=== PATIENT | female | born 1980 | race Caucasian/White ===

== ENCOUNTER 2017-04-07 04:29 | Inpatient (IN) | payer OTHER ==
[2017-04-07] VITALS (17 sets, daily range): BP systolic 119–125; BP diastolic 59–83; PULSE 47–86; RESP 16–18; TEMP 97.8–98.7
[~2017-04-07] VITALS: Ht 167.6 cm; Wt 68.5 kg
[~2017-04-07 04:29] MED LIST: CYCL-36 PO; DICL75 PO
[2017-04-07] MEDS ORDERED: PREN29TA PO (04:42)
[2017-04-07] MEDS ORDERED: ACYC400T PO (04:42)
[2017-04-07] MEDS ORDERED: OXYTOCIN 30 UNITS-500ML PREMIX 500 ML ONE (04:44)
[2017-04-07] MEDS ORDERED: LIDOCAINE HCL 1% 50 ML VIAL ONE (04:45)
--- NOTE | 2017-04-07 04:46 | HHI.HP ---
HPI Chief Complaint Active labor Date Seen: Apr 07, 2017 Travel History International Travel<30 Days: No Contact w/Intl Traveler<30Days: No Known Affected Area: No History of Present Illness HPI 36-year-old white female at 36 -37 wks with active labor presents precipitous labor. Heart tones are within normal limits she is nay every other minutes she goes to the [facility] for care and sees Dr. 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 08/22/11 Diclofenac Sod (Diclofenac Sodium Dr)75 Mg Tab75 Mg PO BIDPRN #14 Prov:PRASAD GUSMAN M.D. 08/22/11 Review of Systems General / Constitutional: No: Fever, Weight Gain, Chills, Other Eyes: No: Diploplia, Blurred Vision, Visual changes, Pain, Photophobia HENT: No: Headaches, Vertigo, Lightheadedness Cardiovascular: No: Irregular Rhythm, Chest Pain or Discomfort, Palpitations, Tachycardia, Syncope, Varicosities, Edema, Cyanosis Respiratory: No: Cough, Short of Breath, Other Gastrointestinal: No: Nausea, Vomiting, Diarrhea Genitourinary: No: Decreased Urinary Output, Oliguria Musculoskeletal: No: Limited ROM, Weakness, Cramping, Edema, Pain Skin: No Rash, No Itching, No Dryness, No Lumps, No Change in Pigmentation, No Change in Nails, No Alopecia, No Lesions Neurologic: No: Weakness, Dizziness, Syncope, Focal Abnormalities, Coordination Problem, Headache, Slurred Speech, Seizures Psychiatric: No: Depression, Suicidal Ideations, Homicidal Ideation Endocrine: No: Heat Intolerance, Cold Intolerance, Polydipsia, Polyuria, Other Physical Exam Narrative GENERAL: Well-nourished, well-developed patient. SKIN: Warm and dry. HEAD: Normocephalic and atraumatic. EYES: No scleral icterus. No injection or drainage. ENT: No nasal drainage noted. Mucous membranes pink. Airway patent. NECK: Supple, trachea midline. No JVD. CARDIOVASCULAR: Regular rate and rhythm without murmurs, gallops, or rubs. RESPIRATORY: Breath sounds equal bilaterally. No accessory muscle use. BREASTS: Bilateral exam showed no masses , no retractions, no nipple discharge. ABDOMEN/GI: Abdomen soft, non-tender, bowel sounds present, no rebound, no guarding Gravid to [38-] weeks size Fundal Height: [38-] GENITOURINARY: External Genitalia: intact and normal in appearance BUS glands: [-] Cervix: [-] Dilatation: [-7] Effacement: [-100] Station: [0-] Presentation: [vtx-] Membranes: [ ruptured] bloody amniotic fluid Uterine Contractions: [q 2 min-] FHT's: Category: [-1] Baseline: [133-] Reactive: [yes-] Variability: [mod-] Decels: [mod-] EXTREMITIES: No cyanosis or edema. BACK: Nontender without obvious deformity. No CVA tenderness. NEUROLOGICAL: Awake and alert. Motor and sensory grossly within normal limits. Five out of 5 muscle strength in all muscle groups. Normal speech. Assessment/Plan Assessment and Plan Patient is 36-year-old white female at 36-37 weeks presents in precipitous labor. Cervix is 7 cm 100 percent 0 station vertex presentation do not feel a bag she has a bloody amniotic fluid show. This very likely is ruptured, contractions are every 2 minutes severe. Heart tones are within normal limits. Quite likely the patient's had an abruption that has lead to precipitous labor Impression precipitous labor at 36-1/2 weeks and SROM Plan admit manage labor anticipate rapid vaginal delivery-- Rogelio Chaney II, MD Apr 07, 2017 04:46
[2017-04-07] MEDS ORDERED: LACTATED RINGER'S 1000 ML INJ 1,000 ML IV SCH (04:51)
[2017-04-07] MEDS ORDERED: LACTATED RINGER'S 1000 ML INJ 1,000 ML IV PRN (04:51)
[2017-04-07] MEDS ORDERED: MINERAL OIL 10 ML VIAL TOPICAL PRN (05:00)
[2017-04-07] MEDS ORDERED: CITRIC ACID-SODIUM CITRATE LIQ 30 ML UDC PO SCH (05:00)
[2017-04-07] MEDS ORDERED: LIDOCAINE HCL 1% 50 ML VIAL INFIL PRN (05:00)
[2017-04-07] MEDS ORDERED: OXYTOCIN 30 UNITS-500ML PREMIX 500 ML IV ONE ×2 (05:00→06:00)
[2017-04-07] MEDS ORDERED: PENICILLIN G POTASSIUM INJ 5,000,000 UNITS in SODIUM CHLORIDE 0.9% INJ 100 ML IV ONE (05:00)
[2017-04-07] MEDS ORDERED: SODIUM CHLORID 0.9% 500 ML INJ 500 ML IV PRN (05:00)
[2017-04-07] MEDS ORDERED: LIDOCAINE HCL 1% 50 ML VIAL I-DERMAL PRN (05:00)
[2017-04-07 05:05] LABS: AUTOMATED NEUTROPHIL # 9.1 TH/MM3 (1.8-7.7); BASOPHIL % 0.2 % (0.0-2.0); EOSINOPHIL % 0.3 % (0.0-4.0); HEMATOCRIT 38.4 % (35.0-46.0); HEMO FLAGS DIFF FINAL; LYMPH % 24.7 % (9.0-44.0); LYMPHOCYTE # 3.3 TH/MM3 (1.0-4.8); MEAN CELL VOLUME 99.1 FL (80.0-100.0); MEAN CORPUSCULAR HEMOGLOBIN 34.6 PG (27.0-34.0); MEAN CORPUSCULAR HGB CONC 34.9 % (32.0-36.0); NEUT % 67.8 % (16.0-70.0); PLATELET COUNT 242 TH/MM3 (150-450); RED BLOOD COUNT 3.88 MIL/MM3 (4.00-5.30); RED CELL DISTRIBUTION WIDTH 13.4 % (11.6-17.2); WHITE BLOOD COUNT 13.4 TH/MM3 (4.0-11.0)
[2017-04-07] MEDS ORDERED: SODIUM CHLOR 0.9% 1000 ML INJ 1,000 ML IV PRN (05:11)
--- NOTE | 2017-04-07 05:53 | PD.OB.DELI ---
Delivery Date: Apr 07, 2017 Anesthesia: None Episiotomy: None Vaginal Delivery: Normal Presentation: Occiput anterior Nuchal Cord: None Delayed cord clamping (45 sec): Yes Infant: Female One Minute : 9 Five Minute : 9 Weight: 7/5 Placenta: Spontaneous delivery, Intact, 3 vessel cord Laceration: No lacerations Estimated blood loss: 350cc Additional Information Precipitous delivery of Anna. Placenta to lab for delivery at 36 weeks Need to check UDS. No records. Luis Enrique Astorga MD Apr 07, 2017 05:53
[2017-04-07] MEDS ORDERED: BENZOCAINE 20% TOPICAL SPRAY 60 ML CAN TOPICAL PRN (06:00)
[2017-04-07] MEDS ORDERED: SODIUM CHLORIDE 0.9% FLUSH 10 ML FLUSH IV FLUSH PRN (06:00)
[2017-04-07] MEDS ORDERED: ONDANSETRON ODT 4 MG TAB PO PRN (06:00)
[2017-04-07] MEDS ORDERED: ACETAMINOPHEN 325 MG TAB PO PRN (06:00)
[2017-04-07] MEDS ORDERED: oxyCODONE/ACETAMINOPHEN 5 MG/325 MG TAB PO PRN (06:00)
[2017-04-07] MEDS ORDERED: OXYTOCIN 30 UNITS-500ML PREMIX 500 ML IV SCH (06:00)
[2017-04-07] MEDS ORDERED: ZOLPIDEM TARTRATE 5 MG TAB PO PRN (06:00)
[2017-04-07] MEDS ORDERED: ALUMINUM/MAGNESIUM/SIMETH 30 ML CUP PO PRN (06:00)
[2017-04-07] MEDS ORDERED: WITCH HAZEL 50%/GLYCERIN 12.5% 40 PAD JAR TOPICAL PRN (06:00)
[2017-04-07] MEDS: IBUPROFEN 600 MG TAB PO PRN ×3 (07:14→21:06)
[2017-04-07] MEDS: SODIUM CHLORIDE 0.9% FLUSH 10 ML FLUSH IV FLUSH SCH ×2 (07:15→21:00)
[2017-04-07] MEDS ORDERED: PENICILLIN G POTASSIUM INJ 2,500,000 UNITS in SODIUM CHLORIDE 0.9% INJ 100 ML IV SCH (09:00)
[2017-04-07] MEDS ORDERED: MULTIVIT/MIN/PREN/FOL AC/IRON PRENATAL TAB PO SCH (09:00)
[2017-04-07] MEDS ORDERED: IBUP-232 PO (12:44)
--- NOTE | 2017-04-07 12:45 | HHI.DCPOC ---
Discharge Care Plan Diagnosis: (1) Vaginal delivery (2) delivery Report Symptoms to Your Doctor -Temperature above 100.5 degrees -Redness, of incision or excessive or foul smelling drainage -Unusual pain or calf pain -Increased vaginal bleeding -Painful or difficulty urinating -Feelings of extreme sadness or anxiety after 2 weeks Goals to Promote Your Health * To prevent worsening of your condition and complications * To maintain your health at the optimal level Directions to Meet Your Goals Take your medications as prescribed Follow your dietary instruction Follow activity as directed Ensure plenty of rest for recovery Drink fluids for hydration Keep your appointments as scheduled Take your immunizations and boosters as scheduled If your symptoms worsen call your PCP, if no PCP go to Urgent Care Center or Emergency Room Smoking is Dangerous to Your Health. Avoid second hand smoke Call the 24-hour crisis hotline for domestic abuse at Luis Enrique Astorga MD Apr 07, 2017 12:45
[2017-04-07] MEDS: oxyCODONE/ACETAMINOPHEN 5 MG/325 MG TAB PO PRN ×2 (13:52→21:06)
[2017-04-07] MEDS ORDERED: MEASLES, MUMPS, RUBELLA VACCINE 0.5 ML VIAL SQ ONE (16:00)
[2017-04-07] MEDS ORDERED: DIPHTH/TETANUS/ACEL PERTUSSIS (BOOSTER) 0.5 ML VIAL/PFS IM ONE (16:00)
[2017-04-07] MEDS: DOCUSATE SODIUM 50 MG/SENNA 8.6 MG TAB PO PRN (21:07)
[2017-04-07 22:02] LABS: AMPHETAMINE, URINE NEG (NEG); BARBITURATES, URINE NEG (NEG); COCAINE, URINE NEG (NEG)
[2017-04-07 22:03] LABS: BLOOD, URINE TRACE (NEG); COMMENT (UR) CULT NOT INDICATED; CULTURE IF INDICATED CULT NOT INDICATED; GLUCOSE,URINE NEG (NEG); KETONE, URINE NEG (NEG); MUCUS URINE FEW /lpf (OCC); NITRITE,URINE NEG (NEG); PH, URINE 5.5 (5.0-8.5); SQUAMOUS EPITHELIAL CELL URINE 1 /hpf (0-5); URINE COLOR YELLOW (YELLW/STRAW)
[2017-04-08] MEDS: IBUPROFEN 600 MG TAB PO PRN ×3 (03:05→16:10)
[2017-04-08] MEDS: oxyCODONE/ACETAMINOPHEN 5 MG/325 MG TAB PO PRN ×3 (03:05→16:10)
--- NOTE | 2017-04-08 08:00 | HHI.OB ---
Subjective Post Day: 1 Remarks Doing well Pain controlled Baby is doing great Bleeding is scant Objective Vitals/I&O Vital Signs Date Time Temp Pulse Resp B/P Pulse Ox O2 Delivery O2 Flow Rate FiO2 04/08/17 04:05 16 04/08/17 04:05 16 04/07/17 19:45 18 121/81 04/07/17 19:45 71 04/07/17 19:45 98.7 04/07/17 08:35 97.8 04/07/17 08:35 16 120/75 Objective Remarks GENERAL: Well-nourished, well-developed patient. CARDIOVASCULAR: Regular rate and rhythm without murmurs, gallops, or rubs. RESPIRATORY: Breath sounds equal bilaterally. No accessory muscle use. ABDOMEN/GI: Abdomen soft, non-tender. Fundus: Firm, non-tender at umbilicus. GENITOURINARY: Light to moderate bleeding. EXTREMITIES: No cyanosis or edema, non-tender, without signs of DVT. Medications and IVs Current Medications Medications (Trade) Dose Ordered Sig/Carol Route Start Time Stop Time Status Last Admin (NS Flush) 2 ml BID IV FLUSH 04/07/17 09:00 04/07/17 07:15 (NS Flush) 2 ml UNSCH PRN IV FLUSH 04/07/17 06:00 (Tylenol) 650 mg Q4H PRN PO 04/07/17 06:00 (Motrin) 600 mg Q6H PRN PO 04/07/17 06:00 04/08/17 03:05 (Percocet 5-325 Mg) 1 tab Q4H PRN PO 04/07/17 06:00 04/08/17 03:05 (Percocet 5-325 Mg) 2 tab Q4H PRN PO 04/07/17 06:00 (Americaine 20% Top Spr) 1 spray Q4H PRN TOPICAL 04/07/17 06:00 (Tucks Pads) 1 applic QID PRN TOPICAL 04/07/17 06:00 (Krys-Colace) 2 tab Q12H PRN PO 04/07/17 06:00 04/07/17 21:07 (Ambien) 5 mg HS PRN PO 04/07/17 06:00 (Mag-Al Plus Susp Liq) 15 ml Q8H PRN PO 04/07/17 06:00 (Zofran Odt) 4 mg Q6H PRN PO 04/07/17 06:00 (Stuartnatal Plus 3 ) 1 tab DAILY PO 04/07/17 09:00 Assessment/Plan Assessment and Plan PPD #1 Need prenatals and need to check her GBS status Routine senior care tomorrow Luis Enrique Astorga MD Apr 08, 2017 08:00
[2017-04-08 08:40] VITALS: BP 116/73; PULSE 67; RESP 16; TEMP 97.6
[2017-04-08] MEDS: DOCUSATE SODIUM 50 MG/SENNA 8.6 MG TAB PO PRN (16:10)
== END 2017-04-08 18:15 | disposition home or self-care (01) | DRG 775 ==
LOC: HOBED 04:29 → H2EB 04:34 → H1EA 07:58
PROVIDERS: ADMIT Obstetrics & Gynecology; ATTEND Obstetrics & Gynecology
PROC: 10E0XZZ Delivery of Products of Conception, External Approach (ICD-10-PCS; principal; 2017-04-07)
DX: O62.3 Precipitate labor (principal); O60.14X0 Preterm labor third trimester with preterm delivery third trimester, not applicable or unspecified; Z37.0 Single live birth; Z3A.36 36 weeks gestation of pregnancy
CPT/HCPCS: 59025; 80307; 81001; 85025; 86900; 86901; 88307; 90715; J2540; J2590; J3010; J7120